=== PATIENT | female | born 1995 | race African-American/Black ===

== ENCOUNTER 2016-07-15 08:26 | Emergency (ER) | payer MEDICAID ==
[~2016-07-15] VITALS: Ht 160 cm; Wt 60.0 kg
[2016-07-15 08:28] VITALS: BP 139/92; PULSE 103; RESP 14; TEMP 98.7; O2SAT 100
[2016-07-15] MEDS ORDERED: CEPH-460 PO (10:54)
[2016-07-15] MEDS ORDERED: MUPI2OIN TOPICAL (10:54)
--- NOTE | 2016-07-15 10:54 | PD ---
HPI Chief Complaint: Skin Problem Time Seen by Provider: 10:30 Travel History International Travel<30 days: No Contact w/Intl Traveler<30days: No Traveled to known affect area: No History of Present Illness HPI Patient's 21-year-old female presenting to emergency for evaluation of right third finger infection. Patient states it started last week, she states that her fingernail broke off when she was moving a box, since then she's had increased redness, swelling and discoloration. She states the pain is an 8 out of 10 and describes it as throbbing. She denies any fever, chills, nausea, vomiting, chest pain, shortness of breath. Patient has not taken anything for the pain. No alleviating or factors, it is exacerbated if touched PFSH Past Medical History Medical History: Denies Significant Hx Diminished Hearing: No Immunizations Current: Yes LMP: 07/02/16 Family History Family History: Negative Social History Alcohol Use: No Tobacco Use: No Substance Use: No Allergies-Medications (Allergen,Severity, Reaction): Coded Allergies: No Known Allergies (Verified , 06/21/15) Reported Meds & Prescriptions Reported Meds & Active Scripts Active No Active Prescriptions or Reported Medications Review of Systems Except as stated in HPI: all other systems reviewed are Neg Musculoskeletal: Positive: Pain Skin: Positive Change in Pigmentation Physical Exam Narrative GENERAL: Well-nourished, well-developed patient. SKIN: Focused skin assessment warm/dry. Right third finger on the medial aspect of the nailbed has an area of fluctuance, yellow discoloration. Tender to the touch, no warmth noted. Brisk less than 3 second capillary refill. HEAD: Normocephalic. EYES: No scleral icterus. No injection or drainage. NECK: Supple, trachea midline. No JVD or lymphadenopathy. CARDIOVASCULAR: Regular rate and rhythm without murmurs, gallops, or rubs. RESPIRATORY: Breath sounds equal bilaterally. No accessory muscle use. GASTROINTESTINAL: Abdomen soft, non-tender, nondistended. MUSCULOSKELETAL: No cyanosis, mild edema to the right third fingertip on the medial aspect of the nailbed. Full range of motion in right hand and fingers. Patient is neurovascularly intact. BACK: Nontender without obvious deformity. No CVA tenderness. Data Data Last Documented VS Vital Signs Date Time Temp Pulse Resp B/P Pulse Ox O2 Delivery O2 Flow Rate FiO2 4/12/17 08:28 98.7 103 14 139/92 100 Room Air MDM Medical Decision Making Medical Screen Exam Complete: Yes Emergency Medical Condition: Yes Interpretation(s) Vital Signs Date Time Temp Pulse Resp B/P Pulse Ox O2 Delivery O2 Flow Rate FiO2 07/15/16 08:28 98.7 103 14 139/92 100 Room Air Differential Diagnosis Cellulitis versus abscess versus paronychia versus onychomycosis versus other Narrative Course Patient is a 21-year-old female presented to emergency for evaluation of right third finger pain and swelling. On exam patient was noted to have a paronychia on the right third finger. Please see procedure report for I&D. Patient tolerated procedure well, cultures obtained. Patient will be placed on antibiotics empirically. She is encouraged to keep wound clean and dry, cover with nonocclusive dressing and topical antibiotic ointment. She is encouraged follow-up with a primary doctor return to emergency department any new or worsening symptoms. Patient verbalized understanding of these instructions. Patient is stable for discharge. Procedures Procedure Narrative After the risks and benefits were discussed the following procedure was performed: INCISION AND DRAINAGE OF ABSCESS: The area was prepped and was sterilely draped. Ethyl chloride was used to anesthetize area. The area was properly anesthetized. A number 11 scalpel was used to make a 2 mm puncture incision across the area of the abscess. Cultures were obtained. The abscess was drained an irrigated with normal saline. Sterile dressing applied. Diagnosis Primary Impression: Paronychia of finger Qualified Code: L03.011 - Paronychia of finger, right Referrals: Primary Care Physician Patient Instructions: Abscess Incision and Drainage (ED), General Instructions , Paronychia (ED) Additional Instructions: Follow-up with your primary doctor Complete full course of antibiotics directed Keep area clean and dry, cover with nonocclusive dressing and topical antibiotic ointment Return to emergency department for any new or worsening symptoms Med/Other Pt SpecificInfo: Prescription(s) given Scripts Mupirocin Topical 2 % Oint1 Applic TOPICAL BID #22 GM Ref 0 Prov:Angelique Huber 07/15/16 Cephalexin (Keflex)500 Mg Adk180 Mg PO Q12H 7 Days Ref 0 Prov:Angelique Huber 07/15/16 Disposition: 01 DISCHARGE HOME Condition: Stable MayoAngelique loganLexis ARNP Jul 15, 2016 10:54
[2016-07-15] MEDS ORDERED: TETANUS/DIPHTHERIA TOXOID ADULT 0.5 ML VIAL IM ONE (11:00)
== END 2016-07-15 11:53 | disposition home or self-care (01) ==
LOC: NEPK 08:26
DX: L03.011 Cellulitis of right finger (principal); B95.62 Methicillin resistant Staphylococcus aureus infection as the cause of diseases classified elsewhere
CPT/HCPCS: 26010; 86403; 87070; 87186; 90471; 90714